=== PATIENT | female | born 1990 | race Hispanic/Latino ===

== ENCOUNTER 2017-02-11 00:44 | Inpatient (IN) | payer MEDICAID ==
[2017-02-11] MEDS ORDERED: NITRATEST PAPER MC ONE (01:28)
[2017-02-11] MEDS ORDERED: STADOL IV PRN (02:03)
[2017-02-11 02:44] LABS: Hematocrit 37.7 % (30.3-42.9); Hemoglobin 12.5 gm/dl (10.1-14.3); Mean Corpuscular HGB Conc 33 % (30-34); Mean Corpuscular Hemoglobin 30 pg (28-32); Mean Corpuscular Volume 91 fl (79-97); Platelet Count 213 K/mm3 (140-440); Red Blood Count 4.13 M/mm3 (3.65-5.03); Red Cell Distribution Width 14.5 % (13.2-15.2); White Blood Count 11.3 K/mm3 (4.5-11.0)
[2017-02-11] MEDS ORDERED: LACTATED RINGERS 1,000 ML IV SCH ×2 (03:00→12:00)
[2017-02-11] MEDS ORDERED: POLYCILLIN/NS 2 GM/100 ML 2 GM/100 ML BAG IV ONE (09:00)
[2017-02-11] MEDS ORDERED: PITOCin/NS 30 UNIT/500ML 30 UNITS/500 ML BAG IV SCH (09:00)
[2017-02-11] MEDS ORDERED: PITOCin/NS 20 UNIT/1000ML DRIP 20,000 MILLIUNITS/1,000 ML BAG IV ONE (10:56)
[2017-02-11] MEDS ORDERED: MINERAL OIL ONE (11:09)
[2017-02-11] MEDS ORDERED: FLEET MINERAL OIL PR ONE (11:11)
[2017-02-11] MEDS ORDERED: CYTOTEC ONE (11:21)
[2017-02-11] MEDS ORDERED: CYTOTEC PR ONE (11:26)
[2017-02-11] MEDS ORDERED: ePHEDrine SULFATE IV PRN (11:38)
[2017-02-11] MEDS ORDERED: MINERAL OIL PO PRN (11:38)
[2017-02-11] MEDS ORDERED: BRETHINE IVP PRN (11:38)
[2017-02-11] MEDS ORDERED: BRETHINE SUB-Q PRN (11:38)
[2017-02-11] MEDS ORDERED: XYLOCAINE 2% INFILTRATI ONE (11:38)
[2017-02-11] MEDS ORDERED: LANSINOH TP PRN (11:42)
[2017-02-11] MEDS ORDERED: BENADRYL PO PRN (11:42)
[2017-02-11] MEDS ORDERED: DERMOPLAST TP PRN (11:42)
[2017-02-11] MEDS ORDERED: DULCOLAX PR PRN (11:42)
[2017-02-11] MEDS ORDERED: MILK OF MAGNESIA PO PRN (11:42)
[2017-02-11] MEDS ORDERED: PHENERGAN PR PRN (11:42)
--- NOTE | 2017-02-11 11:52 | History and Physical Report ---
History of Present Illness Date of examination: 02/11/17 Date of admission: 02/11/17 02:03 Chief complaint: My water broke (clear fluids) at 7:00PM on 02/10/2017. History of present illness: Early entry to course, course complicated by a +FFn at 25 weeks and excessive maternal weight gain. Past History Past Medical History: no pertinent history Past Surgical History: other (2010: Third molars extractions; 2010: Sebaceous cyst excision) [employer]PRES[employer]IVE History: chlamydia Family/Genetic History: diabetes (mother and MGF), heart disease (MGF), hypertension (MGM, Uncle), stroke (MGF), cancer (PGM of Breast Ca in her 60s) Social history: no significant social history, single - Obstetrical History Expected Date of Delivery: 02/16/17 Actual Gestation: 39 Week(s) 2 Day(s) : 2 Para: 1 Hx # Term Pregnancies: 1 Number of Living Children: 1 #1 Infant Gender: Female year: 14 Birthweight: 2.637 kg Method of Delivery: Vaginal Complications: none Medications and Allergies Allergies Allergy/AdvReac Type Severity Reaction Status Date / Time No Known Allergies Allergy Unverified 02/11/17 00:57 Home Medications Medication Instructions Recorded Confirmed Last Taken Type Vit-Fe Fumar-FA [ 1 tab PO QDAY 02/11/17 02/11/17 02/11/17 History Vitamin] Active Meds: Active Medications Acetaminophen/Hydrocodone Bitart (Phelps 5/325) 2 each PO Q6H PRN PRN Reason: Pain, Moderate (4-6) Benzocaine/Menthol (Dermoplast) 1 spray TP PRN PRN PRN Reason: Episiotomy Pain Bisacodyl (Dulcolax) 10 mg NV BID PRN PRN Reason: Constipation Butorphanol Tartrate (Stadol) 2 mg IV Q2H PRN PRN Reason: Labor Pain Diphenhydramine HCl (Benadryl) 25 mg PO Q6H PRN PRN Reason: Itching Ephedrine Sulfate (Ephedrine Sulfate) 10 mg IV Q2M PRN PRN Reason: Hypotension Stop: 02/11/17 11:43 Lactated Ringer's (Lactated Ringers) 1,000 mls @ 125 mls/hr IV DIRECT KIAN Last Admin: 02/11/17 09:20 Dose: 125 mls/hr Oxytocin/Sodium Chloride (Pitocin/Ns 30 Unit/500ml) 30 units in 500 mls @ 2 mls /hr IV TITR KIAN PRN Reason: Protocol Last Titration: 02/11/17 10:25 Dose: 4 ml/hr, 4 mls/hr Ampicillin Sodium (Polycillin/Ns 1 Gm/50 Ml) 1 gm in 50 mls @ 100 mls/hr IV Q4H KIAN PRN Reason: Protocol Lactated Ringer's (Lactated Ringers) 1,000 mls @ 125 mls/hr IV DIRECT KIAN Ibuprofen (Motrin) 600 mg PO Q6H KIAN Lidocaine (Xylocaine 2%) 20 ml INFILTRATI ONCE ONE Stop: 02/11/17 11:39 Magnesium Hydroxide (Milk Of Magnesia) 30 ml PO HS PRN PRN Reason: Constipation Mineral Oil (Mineral Oil) 30 ml PO QHS PRN PRN Reason: Constipation Misoprostol (Cytotec) 800 mcg NV ONCE ONE Stop: 02/11/17 11:27 Multi-Ingredient Ointment (Lansinoh) 1 applic TP PRN PRN PRN Reason: Sore Nipples Promethazine HCl (Phenergan) 25 mg NV Q6H PRN PRN Reason: Nausea And Vomiting Sodium Chloride (Sodium Chloride Flush Syringe 10 Ml) 10 ml IV PRN NR Terbutaline Sulfate (Brethine) 0.25 mg SUB-Q ONCE PRN PRN Reason: Hyperstimulation/Hypertonicity Stop: 02/11/17 11:39 Terbutaline Sulfate (Brethine) 0.25 mg IVP ONCE PRN PRN Reason: Hyperstimulation/Hypertonicity Stop: 02/11/17 11:39 Witch Slime/Glycerin (Tucks Pad) 1 each TP PRN PRN PRN Reason: Hemorrhoid/cleansing/soothing Review of Systems All systems: negative - Vital Signs Vital signs: Vital Signs Temp Pulse Resp BP 99.0 F 86 20 126/71 02/11/17 01:12 02/11/17 01:12 02/11/17 01:12 02/11/17 01:12 Temp Pulse Resp BP Pulse Ox 97.8 F 77 18 136/76 99 02/11/17 07:26 02/11/17 11:40 02/11/17 07:26 02/11/17 11:40 02/11/17 11:40 - Physical Exam Breasts: Positive: normal Cardiovascular: Regular rate Lungs: Positive: Clear to auscultation, Normal air movement Abdomen: Positive: normal appearance, soft, normal bowel sounds Genitourinary (Female): Positive: normal external genitalia, normal perenium Vagina: Positive: other (leaking clear fluid) Uterus: Positive: enlarged Anus/Rectum: Positive: normal perianal skin Extremities: Positive: normal - Obstetrical FHR: category 1 Uterine Contraction Monitor Mode: External Results Result Diagrams: 02/11/17 02:30 Abnormal lab results 02/11/17 Range/Units 02:30 WBC 11.3 H (4.5-11.0) K/mm3 All other labs normal. Assessment and Plan A: IUP at 39 2/7 Weeks Category I Tracing PROM GBS Negative P: Admit to L&D per routine orders Pitocin Augmentation GBS Prophylaxis due to prolonged rupture
[2017-02-11] MEDS ORDERED: SODIUM CHLORIDE FLUSH SYRINGE 10 ML IV NR (12:00)
--- NOTE | 2017-02-11 12:03 | Procedure Note ---
OB Delivery Note - Delivery Date of Delivery: 02/11/17 (1111) Surgeon: DAWIT VERDUZCO Estimated blood loss: other (350) - Vaginal Delivery presentation: vertex Delivery position: OA Delivery induction: oxytocin Delivery augmentation: pitocin Delivery monitor: external FHT, external uterine Route of delivery: Delivery placenta: spontaneous Delivery cord: nuchal cord Episiotomy: none Delivery laceration: none Anesthesia: none Delivery comments: of a live 7'10" male over a intact perineum without pain control with Apgars of 8 and 9 at 1111 on 02/11/2017. Nuchal cord x1 easily manually reduced on the perineum prior to delivery of the anterior shoulder. Infant directly to maternal abd/chest, skin to skin contact. Large gushes of uterine bleeding prior to spontaneous delivery of placenta at 1113. Placenta delivered complete and intact with Gordon side presenting. Uterus is firm and midline located 4 below the U. 600mcg of Cytotec placed rectally following delivery of placenta. Lochia is scant. Delayed cord clamping and cutting; Cord cut by mother. Mother desires to take placenta home. GBS prophylaxis x 1 due to prolonged rupture. - A at 1 minute: 8 at 5 minutes: 9 Gender: Male (7'10)
[2017-02-11] MEDS ORDERED: POLYCILLIN/NS 1 GM/50 ML 1 GM/50 ML BAG IV SCH (13:00)
[2017-02-11] MEDS: NORCO 5/325 PO PRN (15:20)
[2017-02-11] MEDS: MOTRIN PO SCH (18:08)
[2017-02-11] MEDS: TUCKS PAD TP PRN (18:11)
[2017-02-12 00:30] LABS: Hematocrit 34.1 % (30.3-42.9); Hemoglobin 11.4 gm/dl (10.1-14.3)
[2017-02-12] MEDS: NORCO 5/325 PO PRN ×2 (01:59→12:57)
[2017-02-12] MEDS: MOTRIN PO SCH ×3 (06:38→12:56)
--- NOTE | 2017-02-12 08:59 | Discharge Summary ---
Providers - Providers Date of Admission: 02/11/17 02:03 Date of discharge: 02/12/17 Attending physician: MILES ALEJANDRA MD Primary care physician: MILES ALEJANDRA MD Hospitalization Reason for admission: active labor Delivery: Episiotomy: none Laceration: none Other procedures: none complications: none Discharge diagnosis: IUP at term delivered [place] baby: male Condition at discharge: Good Disposition: DISCHARGED TO HOME OR SELFCARE Plan - Provider Discharge Summary Activity: routine, no sex for 6 weeks, no strenuous exercise Diet: routine Instructions: routine Additional instructions: [] Smoking cessation referral if applicable(refer to patient education folder for contact #) [] Refer to [facility] Booklet Call your doctor immediately for: * Fever > 100.5 * Heavy vaginal bleeding ( >1 pad per hour) * Severe persistent headache * Shortness of breath * Reddened, hot, painful area to leg or breast * Drainage or odor from incision. * Keep incision clean and dry at all times and follow doctor's instructions regarding bathing/showering - Follow up plan Follow up: [facility] [Provider Group] - 6 Weeks
--- NOTE | 2017-02-12 09:01 | Progress Note ---
Assessment and Plan A: PPD # 1 stable P: Discharge home today Subjective - Subjective Date of service: 02/12/17 Principal diagnosis: S/P Vaginal delivery Patient reports: appetite normal : doing well Objective - Vital Signs Latest vital signs: Vital Signs Temp Pulse Pulse Resp BP BP Pulse Ox 02/12/17 04:30 98.6 F 65 16 111/76 02/12/17 00:00 98.6 F 65 16 129/77 02/11/17 19:30 98.6 F 77 16 128/70 02/11/17 17:30 98 F 109 H 20 145/60 02/11/17 15:20 20 02/11/17 13:10 99.2 F 64 16 122/68 02/11/17 12:40 85 139/67 02/11/17 12:37 98.4 F 18 02/11/17 12:34 82 142/74 02/11/17 12:10 79 119/73 02/11/17 11:55 77 117/65 02/11/17 11:45 88 97 02/11/17 11:40 77 136/76 99 02/11/17 11:35 98.1 F 20 Intake and Output 02/11/17 02/12/17 02/12/17 22:59 06:59 14:59 Intake Total 760 800 Output Total 600 Balance 160 800 Intake: Oral 360 Intake, Free Water 400 800 Output: Urine 600 Void 600 Other: Total, Intake Amount 360 Total, Output Amount 600 # Voids Void 1 - Exam Breasts: Present: deferred Cardiovascular: Present: Regular rate Lungs: Present: Clear to auscultation Abdomen: Present: soft Vulva: both: normal Uterus: Present: fundal height below umbilicus Extremities: Present: normal Deep Tendon Reflex Grade: Normal +2
[2017-02-12 09:16] VITALS: BP 120/74
[2017-02-12] MEDS: TUCKS PAD TP PRN (12:57)
== END 2017-02-12 18:11 | disposition home or self-care (01) | DRG 775 ==
LOC: TRG 00:44 → LD 02:03 → TRG 02:03 → LD 03:12 → OB 13:30
PROVIDERS: ADMIT Obstetrics & Gynecology; ATTEND Obstetrics & Gynecology
PROC: 3E033VJ Introduction of Other Hormone into Peripheral Vein, Percutaneous Approach (ICD-10-PCS; principal; 2017-02-11)
PROC: 10E0XZZ Delivery of Products of Conception, External Approach (ICD-10-PCS; principal; 2017-02-11)
DX: O69.81X0 Labor and delivery complicated by cord around neck, without compression, not applicable or unspecified (principal); Z3A.39 39 weeks gestation of pregnancy; Z37.0 Single live birth; Z83.3 Family history of diabetes mellitus; Z82.49 Family history of ischemic heart disease and other diseases of the circulatory system; Z80.3 Family history of malignant neoplasm of breast; Z82.3 Family history of stroke
CPT/HCPCS: 36415; 85014; 85018; 85027; 86850; 86900; 86901; 99211; A6250; G0463; J0290; J2590; J7120

== ENCOUNTER 2020-11-13 21:51 | Inpatient (IN) | payer MEDICAID ==
[2020-11-13] MEDS ORDERED: fentaNYL 100 MCG/2 ML INJ IV PRN (22:44)
[2020-11-13] MEDS ORDERED: TERBUTALINE 1 MG/1 ML INJ SUB-Q PRN (22:44)
[2020-11-13] MEDS ORDERED: MINERAL OIL 30 ML ORAL LIQD PO PRN (22:44)
[2020-11-13] MEDS ORDERED: LIDOCAINE (2%) 20 MG/1 ML VIAL 20 ML MDV INFILTRATI ONE (22:44)
[2020-11-13] MEDS ORDERED: AMPICILLIN/NS 2 GM/100 ML 2 GM/100 ML BAG IV ONE (22:44)
[2020-11-13] MEDS ORDERED: ePHEDrine SULFATE 50 MG/1 ML INJ IV PRN (22:44)
[2020-11-13] MEDS ORDERED: LACTATED RINGERS 1,000 ML IV SCH (22:45)
[2020-11-13] MEDS ORDERED: OXYTOCIN DRIP 30 UNITS/500 ML BAG IV SCH ×2 (23:00)
[2020-11-13 23:12] LABS: Hematocrit 41.1 % (30.3-42.9); Hemoglobin 14.1 gm/dl (10.1-14.3); Mean Corpuscular HGB Conc 34 % (30-34); Mean Corpuscular Volume 94 fl (79-97); Platelet Count 236 K/mm3 (140-440); Red Blood Count 4.36 M/mm3 (3.65-5.03); Red Cell Distribution Width 13.5 % (13.2-15.2)
--- NOTE | 2020-11-13 23:12 | History and Physical Report ---
History of Present Illness Date of examination: 11/13/20 Date of admission: 11/13/2020 History of present illness: 30 year old presents to L&D in labor. Patient received care at [facility]. records are available. LMP 02/12/20. EDC 11/18/20. significant for the following: GBS positive, varicella nonimmune, elevated 1 hour sugar test (normal 3 hour OGTT), vitamin D deficiency (Rx Vitamin D), ASCUS pap. labs are as follows: B+, antibody screen negative, rubella immune, RPR nonreactive, hepatitis B surface antigen negative, HIV negative, HSV 2 negative, AFP negative, 1 hour sugar test 156, 3 hour OGTT negative, GBS positive, no GC/CT result on chart. Past History Past Medical History: no pertinent history (abnormal pap, acute bronchitis) Past Surgical History: other (sebaceous cyst excision, teeth extraction) [employer] History: abnormal PAP smear (ASCUS pap during ), chlamydia (history in 2011, treated and cured). denies: gonorrhea, hepatitis B, hepatitis C, herpes, HIV, syphilis, trichomonas Family/Genetic History: diabetes, heart disease, hypertension, stroke, other (bipolar disorder, asthma, hyperlipidemia) Social history: no significant social history, single, full code. denies: smoking, alcohol abuse, prescription drug abuse, IV drug use - Obstetrical History Expected Date of Delivery: 11/18/20 Actual Gestation: 39 Week(s) 2 Day(s) : 3 Para: 2 Hx # Term Pregnancies: 2 Number of Pregnancies: 0 Spontaneous Abortions: 0 Induced : 0 Number of Living Children: 2 Medications and Allergies Allergies Allergy/AdvReac Type Severity Reaction Status Date / Time No Known Allergies Allergy Unverified 02/11/17 00:57 Home Medications Medication Instructions Recorded Confirmed Last Taken Type Vit-Fe Fumar-FA [ 1 tab PO QDAY 02/11/17 02/11/17 02/11/17 History Vitamin] Active Meds: Active Medications Ephedrine Sulfate (Ephedrine Sulfate 50 Mg/1 Ml Inj) 10 mg IV Q2M PRN PRN Reason: Hypotension Fentanyl (Fentanyl 100 Mcg/2 Ml Inj) 100 mcg IV Q2H PRN PRN Reason: Pain,Severe (7-10) LABOR PAIN Oxytocin/Sodium Chloride (Pitocin/Ns 30 Unit/500ml) 30 units in 500 mls @ 2 mls/hr IV TITR KIAN; Protocol Lactated Ringer's (Lactated Ringers) 1,000 mls @ 125 mls/hr IV DIRECT KIAN Oxytocin/Sodium Chloride (Pitocin/Ns 30 Unit/500ml) 30 units in 500 mls @ 40 mls/hr IV TITR KIAN; Protocol Ampicillin Sodium (Ampicillin/Ns 2 Gm/100 Ml) 2 gm in 100 mls @ 100 mls/hr IV ONCE ONE; Protocol Stop: 11/13/20 23:43 Ampicillin Sodium (Ampicillin/Ns 1 Gm/50 Ml) 1 gm in 50 mls @ 100 mls/hr IV Q4H KIAN; Protocol Lidocaine (Lidocaine (2%) 20 Mg/1 Ml Vial 20 Ml Mdv) 20 ml INFILTRATI ONCE ONE Stop: 11/13/20 22:45 Mineral Oil (Mineral Oil 30 Ml Oral Liqd) 30 ml PO QHS PRN PRN Reason: Constipation Terbutaline Sulfate (Terbutaline 1 Mg/1 Ml Inj) 0.25 mg SUB-Q ONCE PRN PRN Reason: Hyperstimulation/Hypertonicity Review of Systems All systems: negative (contractions) - Vital Signs Vital signs: Vital Signs Pulse Pulse Ox 113 H 97 11/13/20 22:25 11/13/20 22:25 Temp Pulse Resp BP Pulse Ox 99.1 F 95 H 18 123/74 97 11/13/20 22:26 11/13/20 22:50 11/13/20 22:26 11/13/20 22:26 11/13/20 22:50 - Physical Exam Abdomen: Positive: normal appearance, soft. Negative: distention, tenderness, guarding, rigidity Genitourinary (Female): Positive: normal external genitalia, normal perenium. Negative: perineal/vulvar lesions Vagina: Positive: normal moisture Uterus: Positive: enlarged. Negative: tender Anus/Rectum: Positive: normal perianal skin Extremities: Positive: normal. Negative: tenderness, edema - Obstetrical FHR: category 1 Uterine Contraction Monitor Mode: External Cervical Dilatation: 5.5 Cervical Effacement Percentage: 70 station: -2 Uterine Contraction Pattern: Regular Uterine Contraction Intensity: Moderate Results All other labs normal. Assessment and Plan A: at 39 weeks, 2 days gestation. Active labor. GBS positive. P: Admit. EFM. GBS prophylaxis.
[2020-11-14] MEDS ORDERED: AMPICILLIN/NS 1 GM/50 ML 1 GM/50 ML BAG IV SCH (02:57)
[2020-11-14] MEDS ORDERED: WITCH HAZEL/ GLYCERIN PAD TP PRN (04:40)
[2020-11-14] MEDS ORDERED: LANOLIN/ZINC/DIMETHICONE (LANSINOH) 7 GM TP PRN (04:40)
[2020-11-14] MEDS ORDERED: MAGNESIUM HYDROXIDE (MOM) ORAL LIQD UDC PO PRN (04:40)
--- NOTE | 2020-11-14 04:49 | Procedure Note ---
OB Delivery Note - Delivery Date of Delivery: 11/14/20 Surgeon: ROSAMARIA OLSON Estimated blood loss: other (150 cc) - Vaginal Delivery presentation: vertex Delivery position: OA Intrapartum events: shoulder dystocia Delivery induction: none Delivery augmentation: rupture of membranes Delivery monitor: external FHT, external uterine Route of delivery: Delivery placenta: spontaneous Delivery cord: 3 umbilical vessels Episiotomy: none Delivery laceration: none Anesthesia: none Delivery comments: Spontaneous vaginal delivery at 04:08 of liveborn female weighing 3.695 kg over intact perineum with apgars of 8/9. No nuchal cord. Right anterior shoulder dystocia, resolved with Radha maneuver, suprapubic pressure, and delivery of posterior shoulder. Head to body interval 30 seconds. Baby placed skin to skin with mom immediately after delivery. Spontaneous cry and respirations. Baby bulb suctioned and dried with warm towels. 3 vessel cord double clamped and cut after cessation of pulsation. Spontaneous delivery of intact placenta and membranes by ramon mechanism at 04:22. EBL 150 cc. Pitocin to IV fluids after delivery of placenta. Fundus firm and midline. No lacerations noted. Vaginal sweep negative. Sponge count correct. Mother and baby stable. Baby moving all extremities well.
[2020-11-14] MEDS: IBUPROFEN 600 MG TAB PO SCH ×2 (11:05→16:51)
[2020-11-14] MEDS: DOCUSATE SODIUM 100 MG CAP PO SCH ×2 (11:05→23:07)
[2020-11-14] MEDS ORDERED: BENZOCAINE/MENTHOL 20/0.5% TOP SPRAY 56 GM TP PRN (11:09)
[2020-11-14] MEDS: PRENATAL VIT27-FE FUMARATE-FOLIC ACID VIT TAB PO SCH (11:10)
[2020-11-14 16:31] LABS: Hematocrit 38.5 % (30.3-42.9); Hemoglobin 12.9 gm/dl (10.1-14.3)
[2020-11-14] MEDS: HYDROcodone/ACETAMINOPHEN 5-325 MG TAB PO PRN ×2 (16:51→23:07)
[2020-11-15] MEDS: IBUPROFEN 600 MG TAB PO SCH ×2 (04:41→05:44)
[2020-11-15] MEDS: HYDROcodone/ACETAMINOPHEN 5-325 MG TAB PO PRN ×3 (05:03→16:14)
--- NOTE | 2020-11-15 09:44 | Progress Note ---
Assessment and Plan A: S/P P: Continue routine pp care D/C home tomm if stable Subjective - Subjective Date of service: 11/15/20 Principal diagnosis: s/p Patient reports: appetite normal, voiding normally, pain well controlled, ambulating normally [place]: doing well, nursing well Objective - Vital Signs Latest vital signs: Vital Signs Temp Pulse Resp BP BP Pulse Ox 11/15/20 07:44 97.4 F L 64 18 115/54 100 11/15/20 00:27 97.7 F 80 18 124/77 96 11/14/20 16:39 98.2 F 87 18 126/70 97 11/14/20 12:34 98.0 F 89 18 126/71 95 Intake and Output 11/14/20 11/15/20 11/15/20 22:59 06:59 14:59 Intake Total 360 240 320 Output Total 500 Balance -140 240 320 Intake: Oral 320 Intake, Free Water 360 240 Output: Urine 500 Void 500 Other: Total, Intake Amount 320 Total, Output Amount 500 # Voids Void 1 2 1 - Exam Breasts: Present: normal Abdomen: Present: normal appearance, soft, normal bowel sounds Vulva: both: normal Uterus: Present: normal, firm, fundal height below umbilicus Extremities: Present: normal
[2020-11-15] MEDS: DOCUSATE SODIUM 100 MG CAP PO SCH (10:29)
[2020-11-15] MEDS: PRENATAL VIT27-FE FUMARATE-FOLIC ACID VIT TAB PO SCH (10:29)
--- NOTE | 2020-11-15 16:07 | Discharge Summary ---
Providers - Providers Date of Admission: 11/13/20 22:44 Date of discharge: 11/15/20 Attending physician: MERI INMAN JR, MD Primary care physician: MERI INMAN JR, MD Hospitalization Reason for admission: active labor, IUP at term Delivery: Episiotomy: none Laceration: none Other procedures: none complications: none Discharge diagnosis: IUP at term delivered [place] baby: female Hospital course: Pt presented to [facility] in labor. She had a w/o complications and was d/c'd home in stable condition per pt request. Condition at discharge: Stable Disposition: DC- TO HOME OR SELFCARE Plan - Discharge Medications Prescriptions: Ibuprofen [Motrin 600 MG tab] 600 mg PO Q6HR #30 tablet - Provider Discharge Summary Activity: routine, no sex for 6 weeks, no heavy lifting 4 weeks, no strenuous exercise Diet: routine Instructions: routine Additional instructions: [] Smoking cessation referral if applicable(refer to patient education folder for contact #) [] Refer to [facility] Booklet Call your doctor immediately for: * Fever > 100.5 * Heavy vaginal bleeding ( >1 pad per hour) * Severe persistent headache * Shortness of breath * Reddened, hot, painful area to leg or breast * Drainage or odor from incision. * Keep incision clean and dry at all times and follow doctor's instructions regarding bathing/showering - Follow up plan Follow up: MERI INMAN JR, MD [Primary Care Provider] - 6 Weeks Forms: [facility] Discharge Summary
[2020-11-15 16:21] VITALS: BP 111/50
== END 2020-11-15 18:27 | disposition home or self-care (01) | DRG 775 ==
LOC: TRG 21:51 → APU 21:53 → TRG 22:44 → LD 22:44 → OB 11-14 06:45
PROVIDERS: ADMIT Obstetrics & Gynecology; ATTEND Obstetrics & Gynecology
PROC: 10E0XZZ Delivery of Products of Conception, External Approach (ICD-10-PCS; principal; 2020-11-14)
DX: O66.0 Obstructed labor due to shoulder dystocia (principal); Z3A.39 39 weeks gestation of pregnancy; Z37.0 Single live birth; Z20.822 Contact with and (suspected) exposure to COVID-19; O99.824 Streptococcus B carrier state complicating childbirth
CPT/HCPCS: 36415; 59025; 85014; 85018; 85027; 86850; 86900; 86901; 96360; 96365; 96366; 96374; G0378; A6250; J0290; J2590; J3010; J7120; U0003